=== PATIENT | male | born 1970 | race Two or more races ===

== ENCOUNTER 2017-02-21 14:07 | Emergency (ER) | payer OTHER ==
[~2017-02-21] VITALS: Ht 188 cm; Wt 102.1 kg
[2017-02-21] MEDS ORDERED: IBUPROFEN 400 MG TABLET ONE (14:30)
[2017-02-21] MEDS ORDERED: IBUPROFEN 400 MG TABLET PO ONE (14:30)
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
[2017-02-21 15:30] VITALS: BP 130/80
--- NOTE | 2017-02-21 15:31 | NUR ---
Patient discharged to home in stable condition. Written and verbal after care instructions given. Patient verbalizes understanding of instruction.
== END 2017-02-21 15:31 | disposition home or self-care (01) ==
LOC: ER 14:12
DX: S13.9XXA Sprain of joints and ligaments of unspecified parts of neck, initial encounter (principal); S00.83XA Contusion of other part of head, initial encounter; S50.811A Abrasion of right forearm, initial encounter; V49.49XA Driver injured in collision with other motor vehicles in traffic accident, initial encounter; Y93.89 Activity, other specified; Y92.89 Other specified places as the place of occurrence of the external cause; Y99.8 Other external cause status
CPT/HCPCS: 70486; 71010; 72125; 73120; 99284; A4606; Z7610